=== PATIENT | female | born 1960 | race Hispanic/Latino ===

== ENCOUNTER → 2018-03-31 | Outpatient (CLI) | payer OTHER ==
--- NOTE | 2018-03-31 12:47 | Diagnostic Imaging Report ---
TECHNIQUE: Magnetic resonance imaging of the LEFT HIP was performed WITHOUT injected contrast. HISTORY: Left hip pain COMPARISON: None available. FINDINGS: Bone: No focal or infiltrative bone marrow replacing abnormality. No osteonecrosis or acute fracture. Femoroacetabular Joint: Acetabular labrum: Fraying of the superior labrum. Articular Cartilage: Cartilage thinning without focal defect. Degenerative cysts of the pubic symphysis. Muscle and tendons: The visualized tendons appear intact. Soft tissues: Mild edema in the quadratus and wrists axial image 23 and 24. 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 Mild left ischiofemoral impingement with edema in the quadratus femoris. Signed by: Dr. Eladio Mo M.D. on 03/31/2018 12:44 PM
== END ==
LOC: MRI 09:38
PROVIDERS: ATTEND Family Medicine
DX: M25.552 Pain in left hip (principal); M24.852 Other specific joint derangements of left hip, not elsewhere classified; R26.9 Unspecified abnormalities of gait and mobility